=== PATIENT | male | born 1990 | race Caucasian/White ===

== ENCOUNTER 2018-06-03 12:48 | Inpatient (IN) | payer OTHER, SELFPAY ==
[2018-06-03 12:49] VITALS: BP 163/97; PULSE 90; RESP 16; TEMP 36.9; O2SAT 98; BMI 23.6
[2018-06-03 12:52] VITALS: BP 163/97; PULSE 90; RESP 16; TEMP 36.9; O2SAT 98
--- NOTE | 2018-06-03 13:07 | CT_ITS ---
STUDY: CT FACIAL BONES WITH CONTRAST REASON FOR EXAM: Male, 27 years old. Possible abscess overlying the left mandibular region. Elevated white count. RADIATION DOSAGE (If Supplied By Facility): CTDIvol = ( 29.38 ) mGy, DLP = ( 576.84 ) mGycm TECHNIQUE: The patient was scanned in a multi detector CT scanner. Transaxial imaging was performed following the intravenous administration of 50 ml of Isovue 370 contrast material. Sagittal and coronal images were reconstructed. Individualized dose optimization techniques were used for this CT. COMPARISON: None. FINDINGS: There is evidence of a 3.4 cm x 1.5 cm x 3.5 cm inhomogeneous soft tissue density with a central area of decreased attenuation overlying the left anterior mandible. This is suggestive of a phlegmon with early formation of an abscess. There is evidence of overlying skin thickening. There is also evidence of a 1.7 cm x 0.9 cm inhomogeneous soft tissue density arising from the anterior aspect of the face overlying the right zygoma. This may represent an early abscess formation as well. Normal orbital dubois and orbital contents. Normal nasal bones and anterior nasal spine. Normal facial bones. There is no demonstrated fracture. Mucosal thickening of the ethmoid sinuses. CT/Sinus/Facial Bone WITH Contras IMPRESSION: Findings suggestive of phlegmon and abscess formation overlying the anterior aspect of the left mandible as well as the right cheek overlying the right zygoma. Electronically Signed: Jose Elias Avila MD at 14:14 EST , Service support ,
[2018-06-03] MEDS: Mag Hydrox/Al Hydrox/Simeth 30 ML UDC PO (13:26)
[2018-06-03] MEDS: 0.9% Normal Saline 1,000 ML 150 ML IV (13:27)
[2018-06-03 13:31] LABS: Absolute Lymphocyte Count 1.14 X10^3/ul (0.83-4.51); Absolute Neutrophil Count 13.8 X10^3/uL (2.0-7.7); Basophil# 0.01 X10^3/uL; Basophil% 0.1 % (0-1); Eosinophil# 0.06 X10^3/uL; Eosinophils% 0.4 % (0-5); Hematocrit 44.3 % (40-54); Hemoglobin 14.8 g/dl (13.0-16.5); Lymphocyte # 1.14 X10^3/ul (4.0); Lymphocyte % 7.2 % (19-41); Mean Corp Hgb Conc 33.4 g/gl (32-36); Mean Corpuscular Hgb 30.3 pg (27.0-32.0); Mean Corpuscular Volume 90.6 fL (80-94); Mean Platelet Vol. 9.5 fl (6.2-12.0); Monocyte% 5.7 % (0-10); Neutrophil # 13.78 X10^3/uL (2.7-7.7); Neutrophil % 86.4 % (47-70); POSITIVE COUNT NO; POSITIVE DIFFERENTIAL NO; POSITIVE MORPHOLOGY NO; Platelet Count 312 K/mm3 (150-450); RBC Distribution Width CV 11.9 % (11.6-14.6); RBC Distribution Width SD 39.4 fl (35.1-43.9); Red Blood Count 4.89 M/mm3 (4.6-6.2); White Blood Count 15.9 K/mm3 (4.4-11.0)
[2018-06-03 13:41] LABS: Anion Gap 9 (5-15); BUN 6 mg/dL (7-18); BUN/Creat Ratio 6.2 RATIO (10-20); Calcium,Total 9.1 mg/dL (8.5-10.1); Chloride 103 mmol/L (98-107); Creatinine, Serum 0.97 mg/dL (0.70-1.30); EST Glomerular Filtration Rate 97 mL/min (>60); Est Glom Filt Rate - Afr Amer 117 mL/min (>60); Estimated Creatinine Clearance 116.02 ml/min; Glucose 101 mg/dL (74-106); Potassium 4.3 mmol/L (3.5-5.1); Sodium Level 141 mmol/L (136-145)
[2018-06-03] MEDS: Morphine 4 MG/ML Syringe IV (14:03)
[2018-06-03] MEDS: Ondansetron 4 MG/2 ML Vial IV (14:03)
[2018-06-03 14:06] VITALS: RESP 16; TEMP 37.3
--- NOTE | 2018-06-03 14:21 | ED.VISSUMM ---
- ER Visit Summary Date of Service: 06/03/18 Chief Complaint: [Facial redness and swelling] History of Present Illness: The patient is a 27 M [presents to the emergency department 3-day history of facial redness and swelling. Patient states that he developed what he thought was a pimple on the left side of his chin/mandible that he popped and had large amount of purulent debris expressed. Subsequently developed increased redness and swelling. Patient also developed redness and swelling to the right upper face and edema to the lower eyelid. Patient describes a subjective fever at home but did not take his temperature. Patient's had some chills. Patient was seen in urgent care and sent to the emergency department for further evaluation.] Physical Examination: [HEENT-PERRLA, EOMI. Cranial nerves II through XII grossly intact. TMs clear. Mucous membranes moist. No adenopathy. Patient has some redness and induration to the right cheek with tenderness on palpation. Patient has some faint edema of the right lower lid. Left lip and chin has an area of soft tissue swelling again that is cellulitic very tender to palpation with edema of the lower lip no discrete fluctuance noted. Cardiovascular-regular rate and rhythm without murmur or ectopy Lungs-clear to auscultation, chest wall stable without crepitus or subcu emphysema Abdomen-normoactive bowel sounds, soft, nontender, no rebound or rigidity, no peritoneal signs. Extremities-intact ?4, normal range of motion, normal pulses, atraumatic] Test Results: [CBC with differential obtained showed a white count of 15.9, hemoglobin 15, hematocrit 44, platelets 312. Chemistries unremarkable. CT scan of the facial bones with IV contrast was ordered which showed phlegmon and early abscess formations to the left mandible area as well as the right upper face.] Emergency Department Course and Treatment: [Patient was started on clindamycin 900 mg IV and was given morphine and Zofran for pain. Patient also complained of some stomach upset from taking ibuprofen and was given a GI cocktail.] Treatment Plan: [Admit for IV antibiotics and possible ENT eval] Disposition: [Admit] Impression: [Facial cellulitis with early abscess formation This note was generated with [employer] dictation software. It may contain incorrect words, spelling, and punctuation that were not noted in review of the chart prior to signing ED Disposition - Plan for ED Patient: Chief Complaint: Abscess Referrals: Jeff Bello MD [Primary Care Provider] -
--- NOTE | 2018-06-03 14:25 | ED.DCSUM_ITS ---
- ER Visit Summary Date of Service: 06/03/18 Chief Complaint: [Facial redness and swelling] History of Present Illness: The patient is a 27 M [presents to the emergency department 3-day history of facial redness and swelling. Patient states that he developed what he thought was a pimple on the left side of his chin/mandible that he popped and had large amount of purulent debris expressed. Subsequently developed increased redness and swelling. Patient also developed redness and swelling to the right upper face and edema to the lower eyelid. Patient describes a subjective fever at home but did not take his temperature. Patient's had some chills. Patient was seen in urgent care and sent to the em ergency department for further evaluation.] Physical Examination: [HEENT-PERRLA, EOMI. Cranial nerves II through XII grossly intact. TMs clear. Mucous membranes moist. No adenopathy. Patient has some redness and induration to the right cheek with tenderness on palpation. Patient has some faint edema of the right lower lid. Left lip and chin has an area of soft tissue swelling again that is cellulitic very tender to palpation with edema of the lower lip no discrete fluctuance noted. Cardiovascular-regular rate and rhythm without murmur or ectopy Lungs-clear to auscultation, chest wall stable without crepitus or subcu emphysema Abdomen-normoactive bowel sounds, soft, nontender, no rebound or rigidity, no peritoneal signs. Extremities-intact ?4, normal range of motion, normal pulses, atraumatic] Test Results: [CBC with differential obtained showed a white count of 15.9, hemoglobin 15, hematocrit 44, platelets 312. Chemistries unremarkable. CT scan of the facial bones with IV contrast was ordered which showed phlegmon and early abscess formations to the left mandible area as well as the right upper face.] Emergency Department Course and Treatment: [Patient was started on clindamycin 900 mg IV and was given morphine and Zofran for pain. Patient also complained of some stomach upset from taking ibuprofen and was given a GI cocktail.] Treatment Plan: [Admit for IV antibiotics and possible ENT eval] Disposition: [Admit] Impression: [Facial cellulitis with early abscess formation This note was generated with [employer] dictation software. It may contain incorrect words, spelling, and punctuation that were not noted in review of the chart prior to signing ED Disposition - Plan for ED Patient: Chief Complaint: Abscess Referrals: Jeff Bello MD [Primary Care Provider] -
--- NOTE | 2018-06-03 14:32 | NURSING ---
MED SURG FACIAL CELLULITIS, AND ABSCESS TERELETSKY
[2018-06-03 14:42] VITALS: BP 119/77; PULSE 74; RESP 16; O2SAT 99
--- NOTE | 2018-06-03 15:00 | PCM.HP.STD ---
Problem List (1) Cellulitis and abscess of face Status: Acute (2) Hx of testicular cancer Status: Chronic (3) ADHD Status: Chronic History of Present Illness Date of Admission: 06/03/18 Chief Complaint: facial swelling The patient is a 27 year old M with past medical history of testicular cancer in remission status post surgery and chemo therapy, also with a history of ADHD, who presented to the emergency room with complaints of pain and swelling of his face for the past 3 days. It began when he popped a pimple on the left side of his chin. Initially there was a significant amount of purulent discharge. He has had increased induration, swelling, pain in the left side of the face and then later the right upper side of the cheek. He has no fevers or chills. He denies a hx of MRSA. He has had cellulitis of the hand before. He has seen ENT in the past in [place] for ulcers in the throat, however he does not have an ENT here in [place]. Xray of the face shows phlegmon/absess. He received clinda in the ER. [] Past Medical History Past Medical History (Chronic Problems): Chronic Problems Hx of testicular cancer (Chronic) ADHD (Chronic) Allergies No Known Allergies Allergy (Verified 06/03/18 12:50) Home Medications: Ambulatory Orders Medication Instructions Recorded Lisdexamfetamine Dimesylate 60 mg PO DAILY 06/03/18 [Vyvanse] Surgical History: - - orchiectomy Psychiatric History: Attn. deficit disorder Lives: Alone Smoking Status: Never smoker Tobacco Use: Non-smoker Alcohol: Occasional Drugs: None - *Family History Maternal History Items: No pertinent history Paternal History Items: No pertinent history Review of Systems Constitutional: Denies: Chills, Fever, Weight Change HEENT: Reports: - - facial swelling, induration, warmth, pain, discharge. Denies: Head Aches, Sinus Congestion, Sinus Drainage Cardiovascular: Denies: Chest Pain, Palpitations Respiratory: Denies: Cough, Shortness of breath at rest, Sputum production Gastrointestinal: Denies: Abdominal Pain, Nausea, Vomiting Genitourinary: Denies: Dysuria Musculoskeletal: Denies: Joint Pain, Joint Tenderness Skin: Denies: Rash, Wounds Neurological: Denies: Numbness, Tingling, Focal weakness Psychiatric: Denies: Anxiety, Depression, Homicidal Ideations, Suicidal Ideations Hematologic/ Lymphatic: Denies: Easy Bruising, Easy Bleeding VTE Information - Inpt Only VTE Present on Admission: No VTE Mechan Device Prophylaxis: None VTE Pharm Prophylaxis ordered?: No Reason prophylaxis not ordered:: Procedure Not Indicated Patient Problems: Active and Suspected Problems Cellulitis and abscess of face (Acute) - Physical Exam General: Alert, Oriented x3, Cooperative HEENT: Atraumatic, PERRLA, EOMI, Normocephalic, - - right upp cheek swollen red, left cheek with healing wound, no expressible discharge, there is tenderness, warmth, erythema, and induration. Neck: Supple, No JVD, Negative Carotid Bruits Lungs: Clear to auscultation, Normal air movement Cardiovascular: Regular rate, No murmurs Abdomen: Bowel Sounds Present, Soft, Non Tender Extremities: No edema, Capillary Refill Less than 3 Seconds Skin: No rashes, No breakdown Musculoskeletal: No Tenderness to Palpation of Joints or Extremities Neurological: Cranial nerves II-XII grossly intact Psych/Mental Status: Normal Affect, Appropriate, Alert and oriented to time, place, person, mood and affect Vital Signs Temp Pulse Resp BP Pulse Ox 99.2 F H 74 16 119/77 99 06/03/18 14:06 06/03/18 14:42 06/03/18 14:42 06/03/18 14:42 06/03/18 14:42 Oxygen Delivery Method Room Air Weight: 164 lb 3.91 oz Body Mass Index (BMI) 23.6 Laboratory Tests Past 24 Hrs 06/03/18 06/03/18 13:15 13:15 WBC 15.9 H RBC 4.89 Hgb 14.8 Hct 44.3 MCV 90.6 MCH 30.3 MCHC 33.4 RDW 11.9 RDW Differential 39.4 Plt Count 312 MPV 9.5 Immature Gran % (Auto) 0.200 Neut % (Auto) 86.4 H Lymph % (Auto) 7.2 L [place] % (Auto) 5.7 Eos % (Auto) 0.4 Baso % (Auto) 0.1 Absolute Neuts (auto) 13.8 H Absolute Lymphs (auto) 1.14 Total Counted Not Reportable Sodium 141 Potassium 4.3 Chloride 103 Carbon Dioxide 29.0 Anion Gap 9 BUN 6 L Creatinine 0.97 Estim Creat Clear Calc 116.02 Est GFR (MDRD) Af Amer 117 Est GFR (MDRD) Non-Af 97 BUN/Creatinine Ratio 6.2 L Glucose 101 Calcium 9.1 Assessment/Plan All Active Problems Cellulitis and abscess of face (Acute) 1. Cellulitis and abscess of the face - xray with underlying abscess/phlegmon. ENT consult. Clinda given in the ER. Provide IV ancef. Repeat CBC, significant leukocytosis. Afebrile. This began after popping a zit. Wound culture if able to express more discharge. If not, nasal mrsa swab. 2. Hx testicular cancer in remission s/p orchiectomy and chemo 3. ADHD - continue vyvanse DVT ppx: Early ambulation This patient was seen by Lexx Harry PA-C under the supervision of Doctor Gonzalez.
[2018-06-03 15:11] VITALS: BMI 22.9; BMI 23.0
[2018-06-03 15:20] VITALS: BP 127/77; PULSE 51; RESP 16; TEMP 36.9; O2SAT 96
[2018-06-03] MEDS: oxyCODONE 5 MG Tablet PO ×2 (16:07→20:12)
--- NOTE | 2018-06-03 18:05 | PCM.CONS.GEN ---
Problem List (1) Cellulitis and abscess of face Status: Acute Reason for Consult Date of Consultation: 06/03/18 Reason for Consultation: cellultitis of face History of Present Illness: The patient is a 27 year old M who presents the emergency department after developing tender and red swelling over the right zygoma and left lateral oral commissure and cheek. He reports that he had a pimple in these locations that he had tried to express some material at which time they worsened and became more tender and red. He reports that the pain has increased since his presentation as each examination with pressure over the site has worsened the pain. He denies any dysphagia or, odynophagia, or shortness of breath. He denies shortness wheezing or stridor. He denies prior history of facial abscess but did have a abscess on his finger a few years back that responded promptly to antibiotic therapy. He denies any exposure to persons with antibiotic resistant infections or history of immunosuppression or other compromise. He denies trauma to the area other than the pimple and has otherwise been in his usual state of health. [] Past Medical History Past Medical History (Chronic Problems): Chronic Problems Hx of testicular cancer (Chronic) ADHD (Chronic) Allergies No Known Allergies Allergy (Verified 06/03/18 12:50) Home Medications: Ambulatory Orders Medication Instructions Recorded Lisdexamfetamine Dimesylate 60 mg PO DAILY 06/03/18 [Vyvanse] Surgical History: - - orchiectomy Psychiatric History: Attn. deficit disorder Lives: Alone Smoking Status: Never smoker Tobacco Use: Chew Alcohol: Occasional Drugs: None - *Family History Maternal History Items: No pertinent history Paternal History Items: No pertinent history Review of Systems Constitutional: Denies: Anorexia, Chills, Fever, Malaise, Weakness Eyes: Denies: Blurred vision, Double vision, Drainage, Pain HEENT: Denies: Difficulty Hearing, Difficulty Swallowing, Hearing Changes, Nasal Congestion, Sinus Drainage, Sore Throat Cardiovascular: Denies: Chest Pain, Chest Pressure, Chest Tightness Respiratory: Denies: Cough, Hemoptysis, Shortness of Breath Gastrointestinal: Denies: Abdominal Pain, Constipation Skin: Reports: Lesions, - - painful swelling over face and cheek bilateral sites Psychiatric: Denies: Anxiety, Depression Hematologic/ Lymphatic: Denies: Easy Bruising, Easy Bleeding Patient Problems: Active and Suspected Problems Cellulitis and abscess of face (Acute) Subjective: Patient reports he is having pain at his facial infection sites has been worsened due to manipulation by his examiners. He reports this is been only moderately improved by the pain medication he was offered. Objective: Well-appearing male in no acute distress eating his dinner at the bedside. There is noted to be swelling and induration with erythema overlying the left cheek extending to the oral commissure as well as the right zygoma. There is fresh blood clot over each of the sites consistent with his reported traumatic attempts at expressing deeper material. There is no maria a drainage or fluctuance and no pointing of the sites. - Physical Exam General: Alert, Oriented x3, Cooperative, No apparent distress HEENT: Atraumatic, PERRLA, EOMI, Normocephalic Oral: Moist Mucosa, No Gingival or Mucosal Lesions/ Ulcerations Neck: Supple Lungs: Normal air movement, No rhonchi, No wheeze Skin: - - Erythematous and indurated area with overlying eschar of right zygoma and left cheek extending to the oral commissure Psych/Mental Status: Alert and oriented to time, place, person, mood and affect Vital Signs Temp Pulse Resp BP Pulse Ox 98.5 F 51 L 16 127/77 H 96 06/03/18 15:20 06/03/18 15:20 06/03/18 15:20 06/03/18 15:20 06/03/18 15:20 Oxygen Delivery Method Room Air Weight: 72.575 kg Body Mass Index (BMI) 22.9 Laboratory Tests Past 24 Hrs 06/03/18 06/03/18 13:15 13:15 WBC 15.9 H RBC 4.89 Hgb 14.8 Hct 44.3 MCV 90.6 MCH 30.3 MCHC 33.4 RDW 11.9 RDW Differential 39.4 Plt Count 312 MPV 9.5 Immature Gran % (Auto) 0.200 Neut % (Auto) 86.4 H Lymph % (Auto) 7.2 L [place] % (Auto) 5.7 Eos % (Auto) 0.4 Baso % (Auto) 0.1 Absolute Neuts (auto) 13.8 H Absolute Lymphs (auto) 1.14 Total Counted Not Reportable Sodium 141 Potassium 4.3 Chloride 103 Carbon Dioxide 29.0 Anion Gap 9 BUN 6 L Creatinine 0.97 Estim Creat Clear Calc 116.02 Est GFR (MDRD) Af Amer 117 Est GFR (MDRD) Non-Af 97 BUN/Creatinine Ratio 6.2 L Glucose 101 Calcium 9.1 Assessment/Plan All Active Problems Cellulitis and abscess of face (Acute) Patient is a 27-year-old male who plans for evaluation of cellulitis and induration after trauma after attempted expression of facial pimples. His CT scan is reviewed which is more consistent with a phlegmon than an abscess at this point. I discussed with him that with intravenous antibiotic therapy these lesions may show recovery and not require surgical intervention however should they progress to fluid-filled spaces incision and drainage would be beneficial. He reports that there is significantly tender with manipulation and I have offered given their location the operative treatment would be an option but that my plan would be for observation over the next 48 hours for improvement for which she is in agreement. He is agreeable to notify me through the nursing staff should there be any significant progression or intolerance of oral intake, shortness of breath, hoarseness, or other significant change for the worse.
[2018-06-03] MEDS: Pantoprazole Sodium 40 MG Tablet PO (18:35)
[2018-06-03] MEDS: Acetaminophen 325 MG Tablet 650 MG PO (20:12)
[2018-06-03 20:15] VITALS: BP 132/72; PULSE 57; RESP 16; TEMP 37.4; O2SAT 100
[2018-06-03] MEDS: Morphine 2 MG/ML Syringe IV (21:27)
[2018-06-03] MEDS: 0.9% Normal Saline 1,000 ML 100 ML IV (23:21)
[2018-06-04 00:25] VITALS: BP 130/71; PULSE 75; RESP 16; TEMP 37.2; O2SAT 96
[2018-06-04] MEDS: oxyCODONE 5 MG Tablet PO ×4 (00:27→21:28)
[2018-06-04 05:57] VITALS: BP 114/50; PULSE 55; RESP 16; TEMP 37.2; O2SAT 98
[2018-06-04 06:17] LABS: Absolute Lymphocyte Count 1.57 X10^3/ul (0.83-4.51); Absolute Neutrophil Count 11.4 X10^3/uL (2.0-7.7); Basophil# 0.01 X10^3/uL; Basophil% 0.1 % (0-1); Eosinophil# 0.21 X10^3/uL; Eosinophils% 1.5 % (0-5); Hematocrit 36.6 % (40-54); Hemoglobin 12.2 g/dl (13.0-16.5); Lymphocyte # 1.57 X10^3/ul (4.0); Lymphocyte % 11.1 % (19-41); Mean Corp Hgb Conc 33.3 g/gl (32-36); Mean Corpuscular Hgb 30.3 pg (27.0-32.0); Mean Corpuscular Volume 90.8 fL (80-94); Mean Platelet Vol. 9.4 fl (6.2-12.0); Monocyte# 0.91 X10^3/uL; Monocyte% 6.5 % (0-10); Neutrophil # 11.37 X10^3/uL (2.7-7.7); Neutrophil % 80.6 % (47-70); Platelet Count 269 K/mm3 (150-450); RBC Distribution Width CV 11.5 % (11.6-14.6); RBC Distribution Width SD 37.4 fl (35.1-43.9); Red Blood Count 4.03 M/mm3 (4.6-6.2); White Blood Count 14.1 K/mm3 (4.4-11.0)
[2018-06-04 06:20] LABS: POSITIVE COUNT NO; POSITIVE DIFFERENTIAL NO; POSITIVE MORPHOLOGY NO
--- NOTE | 2018-06-04 06:56 | PN_ITS ---
Patient Problems: Active and Suspected Problems Cellulitis and abscess of face (Acute) Subjective: Overnight with notable discharge secondary to ongoing pressing and touching his wounds as he was noted to aggressively attempt to express both regions per night staff with ongoing purulent discharge despite our encouragement to avoid doing this. Patient notes that the left lateral cheek seems improved following notable purulent discharge being expressed; however, his right upper cheek erythema and edema has worsened and extended up into his lower and upper eyelids as well. 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 Patient denies fevers, chills, nausea, emesis, abdominal pain, chest pain or dyspnea. Objective: Physical Examination: General: awake, alert, oriented x 3 and cooperative, upon initial evaluation patient had ice on his face seated upright in bed, uncomfortable appearing. Skin: Erythema of the left cheek extending to the oral commissure although improved from prior per patient report with still notable tenderness to palpation and ongoing purulent discharge in addition to right zygomatic arch erythema, edema, induration with mild purulent discharge from wounds with worsened erythema and edema into the lower and upper eyelid at this time, patient unable to open his lid. HEENT: AT/NC noted skin findings with swelling, induration, overlying erythema of the left cheek extending to the oral commissure although improved from prior per patient report with still notable tenderness to palpation and ongoing purulent discharge in addition to right zygomatic arch erythema, edema, induration with mild purulent discharge from wounds with worsened erythema and edema into the lower and upper eyelid at this time, patient unable to open his lid, EOM L eye intact, unable to open R eyelid as noted, PERRLA with assist to open R eye lids, mildly dry MM. Lungs: CTA bilaterally, moderate effort, mild decrease BL bases, no rales, ronchi or wheezing. Heart: Regular rate and rhythm; no gallop, rub audible. Abdomen: soft, NTTP, ND, normal BS. Extremities: no cyanosis, clubbing, or edema. Neurological: patient awake, alert, oriented x 3; cognitive function intact; pupils equally reactive to light and accomodation with limitations as noted above; cranial nerves II-XII grossly normal; however, difficult assessment secondary to edema as noted, moving all 4 extremities, no focal deficits, strength mildly globally decreased. Psychiatric: affect appears normal, no acute evidence of depressive or anxiety feelings. Vitals/I&O's: Vital Signs Temp Pulse Resp BP Pulse Ox 99.0 F 55 L 16 114/50 L 98 06/04/18 05:57 06/04/18 05:57 06/04/18 05:57 06/04/18 05:57 06/04/18 05:57 Oxygen Delivery Method Room Air Weight: 160 lb Body Mass Index (BMI) 22.9 Intake and Output for Last 24 Hours 06/02/18 06/03/18 06/04/18 23:59 23:59 23:59 Intake Total 2009 1302 / 1302 Output Total 275 / 275 800 / 800 Balance 1735 / 1735 502 / 502 Laboratory Results 06/03/18 13:15: WBC 15.9 H, RBC 4.89, Hgb 14.8, Hct 44.3, MCV 90.6, MCH 30.3, MCHC 33.4, RDW 11.9, RDW Differential 39.4, Plt Count 312, MPV 9.5, Immature Gran % (Auto) 0.200, Neut % (Auto) 86.4 H, Lymph % (Auto) 7.2 L, [place] % (Auto) 5.7, Eos % (Auto) 0.4, Baso % (Auto) 0.1, Absolute Neuts (auto) 13.8 H, Absolute Lymphs (auto) 1.14, Total Counted Not Reportable 06/03/18 13:15: Sodium 141, Potassium 4.3, Chloride 103, Carbon Dioxide 29.0, Anion Gap 9, BUN 6 L, Creatinine 0.97, Estim Creat Clear Calc 116.02, Est GFR (MDRD) Af Amer 117, Est GFR (MDRD) Non-Af 97, BUN/Creatinine Ratio 6.2 L, Glucose 101, Calcium 9.1 06/04/18 06:02: WBC 14.1 H, RBC 4.03 L, Hgb 12.2 L, Hct 36.6 L, MCV 90.8, MCH 30.3, MCHC 33.3, RDW 11.5 L, RDW Differential 37.4, Plt Count 269, MPV 9.4, Immature Gran % (Auto) 0.200, Neut % (Auto) 80.6 H, Lymph % (Auto) 11.1 L, [place] % (Auto) 6.5, Eos % (Auto) 1.5, Baso % (Auto) 0.1, Absolute Neuts (auto) 11.4 H, Absolute Lymphs (auto) 1.57, Total Counted Not Reportable Current Medications Acetaminophen (Tylenol) 650 mg PO Q6H PRN PRN PRN Reason: Mild Pain (1-3)/Temp > 100.7 F Last Admin: 06/03/18 20:12 Dose: 650 mg Sodium Chloride () 1,000 mls @ 100 mls/hr IV .Q10H [place] Last Admin: 06/03/18 23:21 Dose: 100 mls/hr Ampicillin Sodium/Sulbactam (Sodium 3 gm/ Sodium Chloride) 112 mls @ 150 mls/hr IV Q6 [place] Last Admin: 06/04/18 05:59 Dose: 150 mls/hr Oxycodone HCl (Oxyir) 10 - 15 mg PO Q4H PRN PRN PRN Reason: MOD-SEVERE PAIN (4-10/10) Last Admin: 06/04/18 06:00 Dose: 15 mg Pantoprazole Sodium (Protonix) 40 mg PO DAILY [facility] Sodium Chloride () 5 - 15 ml IV UD PRN PRN Reason: SALINE FLUSH Medical Necessity - Tobacco Use Smoking Status: Never smoker Tobacco Use: Chew Assessment/Plan All Active Problems Cellulitis and abscess of face (Acute) The patient is a 27 y/o M w/ PMHx: ADHD, History of Testicular Cancer in remission s/p chemotherapy and orchiectomy, 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 (1) Facial (Left lateral mouth/cheek), Right Upper Cheek Abscess, Cellulitis: ED work-up with facial/sinus imaging w/ just of a phlegmon and abscess formation overlying the anterior aspect of the left mandible as well as the right cheek overlying the right zygoma admission CBC w/ WBC 15.9 with L shift. Admitted to [place], maintained on IV Unasyn, given health care worker will add Vanc pending requested Wound Cx and Wound MRSA PCR, plan repeat CBC in AM, continue HOB elevation, monitor erythema outline with VS checks. Strongly encouraged patient to discontinue pressing and touching his wounds as he was noted to aggressively attempt to express both regions per night staff with ongoing purulent discharge. PRN IV, oral pain regimen, scheduled short course toradol IV. ENT consulted and following, planned continued abx therapy x 48 hours with re-assessment for surgical needs. (2) ADHD: Continue home Vyvanse regimen. (3) History of Testicular CA: Patient in remission s/p chemotherapy and orchiectomy. (4) Chew Tobacco: Encouraged cessation, inpatient consultation per RT, NR if desired. (5) GERD: PPI. (6) DVT Prophylaxis: Ambulation, low risk. Code Visit Inpatient E&M: 07125 Subs Hosp L3
[2018-06-04 08:22] LABS: Magnesium 1.8 mg/dL (1.6-2.6)
--- NOTE | 2018-06-04 08:22 | PCM.RX.CS ---
Consult Pharmacy has been consulted to manage selected antiobiotic: Vancomycin Type of Consult: New start Suspected Infection: Skin/Soft tissue Labs: Sodium 141 mmol/L (136-145) 06/03/18 13:15 Potassium 4.3 mmol/L (3.5-5.1) 06/03/18 13:15 Chloride 103 mmol/L (98-107) 06/03/18 13:15 Carbon Dioxide 29.0 mmol/L (21.0-32.0) 06/03/18 13:15 Anion Gap 9 (5-15) 06/03/18 13:15 BUN 6 mg/dL (7-18) L 06/03/18 13:15 Creatinine 0.97 mg/dL (0.70-1.30) 06/03/18 13:15 Est GFR (MDRD) Af Amer 117 mL/min (>60) 06/03/18 13:15 Est GFR (MDRD) Non-Af 97 mL/min (>60) 06/03/18 13:15 BUN/Creatinine Ratio 6.2 RATIO (10-20) L 06/03/18 13:15 Glucose 101 mg/dL (74-106) 06/03/18 13:15 Weight used for dosin kg Estimated Creatinine Clearance: > 100 Goal Trough: 10-15 mcg/mL Pharmacy Plan for Drug Dosing: Discussed dosing of vancomycin with Dr Beverly. Will not follow protocol initially, will start vancomycin 1000mg IV q8h with trough check prior to 5th dose. Will revert back to dosing protocol at that time. Pharmacy Service will continue to monitor and adjust dosing as required. Follow-Up Labs: Trough Vancomycin - 06/05/18 @ 1530
[2018-06-04] MEDS: Ketorolac 30 MG/ML Syringe IV ×3 (09:11→21:21)
[2018-06-04] MEDS: Pantoprazole Sodium 40 MG Tablet PO (09:11)
[2018-06-04] MEDS: Vancomycin IV 1,000 MG/200 ML BAG 200 MG IV ×3 (09:12→23:28)
[2018-06-04] MEDS: Acetaminophen 325 MG Tablet 650 MG PO (09:12)
[2018-06-04] MEDS: 0.9% Normal Saline 1,000 ML 100 ML IV ×2 (09:32→21:21)
[2018-06-04 09:34] VITALS: BP 119/66; PULSE 67; RESP 16; TEMP 38.1; O2SAT 99
[2018-06-04] MEDS: Morphine 2 MG/ML Syringe IV ×3 (09:51→19:49)
[2018-06-04] MEDS: 0.9% NaCl Peripheral Flush Adult/Peds IV (09:56)
--- NOTE | 2018-06-04 11:51 | NURSING ---
wound photo: under right eye
--- NOTE | 2018-06-04 11:54 | NURSING ---
wound photo: left side of mouth, chin area
--- NOTE | 2018-06-04 12:15 | CASEMGMT ---
RN CM Assessment Presentation: Left facial swelling from having popped a pimple. Significant amount of purulent drainage. Cultures sent, IV Vancomyin and IV Unasyn. CT showed fluid collection in LL lip and chin area and R cheek area, possible abscess collections. Intro role of CM and purpose of RN CM assessment. Pt is anxious to recover and return to work as he states he has no PTO time. Nurse updated that pt would like work excuse when dc'd. His next work day is Friday evening. RN CM offered emotional support and discussed need for cultures to come back and IV antibiotic therapy as prescribed by physicians due to extent of redness and swelling on face. Pt does understand but is verbalizing frustration. PCP: Dr. Bello Specialists: Dr. Welch consulted Preferred [facility]acy: [facility], entered in chart. Insurance: [employer] Prescription Benefit: yes LNOK: Parents/ Camron and Denise Elser Living Arrangements: Lives independently, works, denies DME or oxygen use. Transportation: Drives DC PLAN: Home on discharge. Pt plans to return to work as soon as possible. If dc plan requires more involvement than home with po antibiotics, RN CM will assist with further dc planning. Og HERNANDEZN RN ACM
--- NOTE | 2018-06-04 12:45 | PCM.PROGNOTE ---
Patient Problems: Active and Suspected Problems Cellulitis and abscess of face (Acute) Subjective: The patient reports that he had a large amount of drainage over the left cheek site last night which is resulted in significant reduction in pain and swelling. He did have some progression on the right which is now extended to the lower eyelid and although this morning he had trouble opening the eye this has improved as the day is going on. He reports overall he feels that things are improving and his pain is significantly decreased. Objective: Patient is sitting comfortably in bed. There is decreased induration and fullness over the left oral commissure and cheek. Palpation reveals this to be softening with less induration and no maria a purulence expressed. Over the right zygoma there is a small amount of purulent drainage expressed on palpation in the area of erythema extends to involve the lower eyelid however he is able to open the eye at this time. He reports that this is much less painful to palpation as it had been yesterday. - Physical Exam General: Alert, Oriented x3, Cooperative, No apparent distress HEENT: Atraumatic, PERRLA, EOMI, - - Bilateral areas of cellulitis. This is reduced on the left. There is some moderate extension to involve the lower eyelid on the right. There has been noted to be spontaneous drainage of both sites overnight. Oral: Moist Mucosa, No Gingival or Mucosal Lesions/ Ulcerations Neck: Supple Lungs: Normal air movement, No rhonchi, No wheeze Skin: Ulcer/ Wound - of face as noted Neurological: Neuro grossly intact Psych/Mental Status: Alert and oriented to time, place, person, mood and affect Vital Signs Temp Pulse Resp BP Pulse Ox 100.5 F H 67 16 119/66 99 06/04/18 09:34 06/04/18 09:34 06/04/18 09:34 06/04/18 09:34 06/04/18 09:34 Oxygen Delivery Method Room Air Weight: 72.6 kg Body Mass Index (BMI) 22.9 Intake and Output for Last 24 Hours 06/02/18 06/03/18 06/04/18 23:59 23:59 23:59 Intake Total 2009 1302 / 1302 Output Total 275 / 275 800 / 800 Balance 1735 / 1735 502 / 502 Laboratory Tests Past 24 Hrs 06/03/18 06/03/18 06/04/18 13:15 13:15 06:02 WBC 15.9 H 14.1 H RBC 4.89 4.03 L Hgb 14.8 12.2 L Hct 44.3 36.6 L MCV 90.6 90.8 MCH 30.3 30.3 MCHC 33.4 33.3 RDW 11.9 11.5 L RDW Differential 39.4 37.4 Plt Count 312 269 MPV 9.5 9.4 Immature Gran % (Auto) 0.200 0.200 Neut % (Auto) 86.4 H 80.6 H Lymph % (Auto) 7.2 L 11.1 L [place] % (Auto) 5.7 6.5 Eos % (Auto) 0.4 1.5 Baso % (Auto) 0.1 0.1 Absolute Neuts (auto) 13.8 H 11.4 H Absolute Lymphs (auto) 1.14 1.57 Total Counted Not Reportable Not Reportable Sodium 141 Potassium 4.3 Chloride 103 Carbon Dioxide 29.0 Anion Gap 9 BUN 6 L Creatinine 0.97 Estim Creat Clear Calc 116.02 Est GFR (MDRD) Af Amer 117 Est GFR (MDRD) Non-Af 97 BUN/Creatinine Ratio 6.2 L Glucose 101 Calcium 9.1 Magnesium S.aureus Protein A PCR MRSA (PCR) 06/04/18 06/04/18 06:02 09:30 WBC RBC Hgb Hct MCV MCH MCHC RDW RDW Differential Plt Count MPV Immature Gran % (Auto) Neut % (Auto) Lymph % (Auto) [place] % (Auto) Eos % (Auto) Baso % (Auto) Absolute Neuts (auto) Absolute Lymphs (auto) Total Counted Sodium Potassium Chloride Carbon Dioxide Anion Gap BUN Creatinine Estim Creat Clear Calc Est GFR (MDRD) Af Amer Est GFR (MDRD) Non-Af BUN/Creatinine Ratio Glucose Calcium Magnesium 1.8 S.aureus Protein A PCR Pending MRSA (PCR) Pending Medical Necessity - Tobacco Use Smoking Status: Never smoker Tobacco Use: Chew Assessment/Plan All Active Problems Cellulitis and abscess of face (Acute) The patient has done well overnight despite some extension of the redness and swelling of the overlying eyelid his areas of cellulitis appear to be improved. There is been spontaneous drainage of both sites overnight. I would recommend topical application of warm compresses to facilitate ongoing drainage. As there has been spontaneous drainage, I do not feel that surgical incision and drainage would be warranted at this time however and anticipate his good response to intravenous antibiotic therapy that should cultures not show significant antibiotic resistance that transition to oral therapy and follow-up as an outpatient would be appropriate.
[2018-06-04 15:08] VITALS: BP 112/65; PULSE 59; RESP 16; TEMP 36.6; O2SAT 100
[2018-06-04 15:12] LABS: M R Staph aureus DNA By PCR POSITIVE (Negative); Probe Check PASS; Staph aureus DNA By PCR POSITIVE (Negative)
[2018-06-04 15:19] LABS: M R Staph aureus DNA By PCR POSITIVE (Negative); Probe Check PASS; Staph aureus DNA By PCR POSITIVE (Negative)
[2018-06-04 19:55] VITALS: BP 132/79; PULSE 56; RESP 16; TEMP 36.9; O2SAT 100
[2018-06-05 00:46] VITALS: BP 132/82; PULSE 52; RESP 16; TEMP 36.4; O2SAT 100
[2018-06-05] MEDS: oxyCODONE 5 MG Tablet PO ×4 (01:24→22:57)
[2018-06-05] MEDS: Ketorolac 30 MG/ML Syringe IV ×3 (06:08→22:18)
[2018-06-05 06:33] LABS: Absolute Lymphocyte Count 1.67 X10^3/ul (0.83-4.51); Absolute Neutrophil Count 4.6 X10^3/uL (2.0-7.7); Basophil# 0.02 X10^3/uL; Basophil% 0.3 % (0-1); Eosinophils% 4.2 % (0-5); Hematocrit 35.2 % (40-54); Lymphocyte # 1.67 X10^3/ul (4.0); Lymphocyte % 23.5 % (19-41); Mean Corp Hgb Conc 34.1 g/gl (32-36); Mean Corpuscular Hgb 30.8 pg (27.0-32.0); Mean Corpuscular Volume 90.3 fL (80-94); Mean Platelet Vol. 9.8 fl (6.2-12.0); Monocyte# 0.45 X10^3/uL; Monocyte% 6.3 % (0-10); Neutrophil # 4.64 X10^3/uL (2.7-7.7); Neutrophil % 65.4 % (47-70); Platelet Count 268 K/mm3 (150-450); RBC Distribution Width CV 11.4 % (11.6-14.6); RBC Distribution Width SD 36.6 fl (35.1-43.9); White Blood Count 7.1 K/mm3 (4.4-11.0)
[2018-06-05 06:35] LABS: POSITIVE COUNT NO; POSITIVE DIFFERENTIAL NO; POSITIVE MORPHOLOGY NO
[2018-06-05 06:38] VITALS: BP 117/62; PULSE 51; RESP 16; TEMP 36.4; O2SAT 99
--- NOTE | 2018-06-05 06:44 | PN_ITS ---
Patient Problems: Active and Suspected Problems Cellulitis and abscess of face (Acute) Subjective: Patient with no acute events overnight per self and per nursing report. Pain control improved, erythema and cellulitis of the right zygomatic region as well as left lateral cheek near the oral commissure markedly improved, still having drainage from the left cheek region and still mildly indurated. Patient with notable improvement his labs and remains now afebrile. Patient is able to bend his eyelid he notes. Patient denies fevers, chills, nausea, emesis, abdominal pain, chest pain or dyspnea. Objective: Physical Examination: General: awake, alert, oriented x 3 and cooperative, NAD, more comfortable appearing, although with palpation does tense jaw and neck. Skin: Erythema of the left cheek decreased, only noted around draining region/wounds, extending to the oral commissure, still TTP, still mildly indurated, expected TTP, notably improved right zygomatic arch erythema, edema, induration, currently no drainage from wounds with worsened erythema, notably reduced edema into the lower and upper eyelid with patient able to easily open his eye now. HEENT: AT/NC noted skin findings above, EOMI, PERRLA, now open to easily open R eye, improved MMM, cervical/postauricular LAD present. Lungs: CTA bilaterally, moderate effort, mild decrease BL bases, no rales, ronchi or wheezing. Heart: Regular rate and rhythm; no gallop, rub audible. Abdomen: soft, NTTP, ND, normal BS. Extremities: no cyanosis, clubbing, or edema. Neurological: patient awake, alert, oriented x 3; cognitive function intact; pupils equally reactive to light and accomodation with limitations as noted above; cranial nerves II-XII grossly normal; however, difficult assessment secondary to edema as noted, moving all 4 extremities, no focal deficits, strength improved, moving w/ greater ease, less uncomfortable, mildly globally decreased. Psychiatric: affect appears normal, no acute evidence of depressive or anxiety feelings. Vitals/I&O's: Vital Signs Temp Pulse Resp BP Pulse Ox 97.6 F L 51 L 16 117/62 99 06/05/18 06:38 06/05/18 06:38 06/05/18 06:38 06/05/18 06:38 06/05/18 06:38 Oxygen Delivery Method Room Air Weight: 160 lb 0.889 oz Body Mass Index (BMI) 22.9 Intake and Output for Last 24 Hours 06/03/18 06/04/18 06/05/18 23:59 23:59 23:59 Intake Total 2009 4497 / 4497 1009 / 1009 Output Total 275 / 275 2925 / 2925 1000 / 1000 Balance 1735 / 1735 1572 / 1572 9 / 9 Microbiology Past 72 Hours 06/04/18 09:30 Wound - Face Gram Stain - Final 06/04/18 09:30 Wound - Face Gram Stain - Final Laboratory Results 06/04/18 06:02: Magnesium 1.8 06/04/18 09:30: S.aureus Protein A PCR POSITIVE H, MRSA (PCR) POSITIVE H 06/04/18 09:30: S.aureus Protein A PCR POSITIVE H, MRSA (PCR) POSITIVE H 06/05/18 06:00: WBC 7.1, RBC 3.90 L, Hgb 12.0 L, Hct 35.2 L, MCV 90.3, MCH 30.8, MCHC 34.1, RDW 11.4 L, RDW Differential 36.6, Plt Count 268, MPV 9.8, Immature Gran % (Auto) 0.300, Neut % (Auto) 65.4, Lymph % (Auto) 23.5, [place] % (Auto) 6.3, Eos % (Auto) 4.2, Baso % (Auto) 0.3, Absolute Neuts (auto) 4.6, Absolute Lymphs (auto) 1.67, Total Counted Not Reportable 06/05/18 06:00: Sodium Pending, Potassium Pending, Chloride Pending, Carbon Dioxide Pending, Anion Gap Pending, BUN Pending, Creatinine Pending, Est GFR (MDRD) Af Amer Pending, Est GFR (MDRD) Non-Af Pending, BUN/Creatinine Ratio Pending, Glucose Pending, Calcium Pending Current Medications Acetaminophen (Tylenol) 650 mg PO Q6H PRN PRN PRN Reason: Mild Pain (1-3)/Temp > 100.7 F Last Admin: 06/04/18 09:12 Dose: 650 mg Sodium Chloride () 1,000 mls @ 100 mls/hr IV .Q10H [facility] Last Admin: 06/04/18 21:21 Dose: 100 mls/hr Ampicillin Sodium/Sulbactam (Sodium 3 gm/ Sodium Chloride) 112 mls @ 150 mls/hr IV Q6 [facility] Last Admin: 06/05/18 06:08 Dose: 150 mls/hr Vancomycin IV Pharmacy to Dose (1 ea/ Sodium Chloride) 500 mls @ 250 mls/hr IV X1 PRN; Protocol PRN Reason: Rx to Dose Vancomycin HCl (Vancomycin) 1,000 mg in 200 mls @ 200 mls/hr IV Q8H [facility] Last Admin: 06/04/18 23:28 Dose: 200 mls/hr Ketorolac Tromethamine (Toradol) 30 mg IV Q8 [facility] Stop: 06/05/18 22:01 Last Admin: 06/05/18 06:08 Dose: 30 mg Morphine Sulfate () 2 - 4 mg IV Q4H PRN PRN PRN Reason: PAIN Last Admin: 06/04/18 19:49 Dose: 4 mg Oxycodone HCl (Oxyir) 5 - 10 mg PO Q4H PRN PRN PRN Reason: MOD-SEVERE PAIN (4-10/10) Last Admin: 06/05/18 01:24 Dose: 10 mg Pantoprazole Sodium (Protonix) 40 mg PO DAILY [facility] Last Admin: 06/04/18 09:11 Dose: 40 mg Sodium Chloride () 5 - 15 ml IV UD PRN PRN Reason: SALINE FLUSH Last Admin: 06/04/18 09:56 Dose: 10 ml Medical Necessity - Tobacco Use Smoking Status: Never smoker Tobacco Use: Chew Assessment/Plan All Active Problems Cellulitis and abscess of face (Acute) The patient is a 27 y/o M w/ PMHx: ADHD, History of 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 (1) Acute Sepsis secondary to Facial (Left lateral mouth/cheek), Right Upper Cheek MRSA Abscess, Cellulitis: ED work-up with facial/sinus imaging w/ just of a phlegmon and abscess formation overlying the anterior aspect of the left mandible as well as the right cheek overlying the right zygoma admission CBC w/ WBC 15.9 with L shift. Admitted to [facility], maintained on IV Unasyn initially, given health care worker added Vanc w/ pending Wound Cx, + MRSA Wound PCR, 06/05/18 CBC w/ improvement, WBC 7.1 with resolved shift from day prior, continue HOB elevation, continue ENT recommended compresses, continue to monitor erythema outline with VS checks. Continued encouragement to avoid pressing and touching his wounds. PRN IV, oral pain regimen, scheduled short course toradol IV. ENT consulted and following. (2) ADHD: Continue home Vyvanse regimen. (3) History of Testicular CA: Patient in remission s/p chemotherapy and orchiectomy. (4) Chew Tobacco: Encouraged cessation, inpatient consultation per RT, NR if desired. (5) GERD: PPI. (6) DVT Prophylaxis: Ambulation, low risk. Code Visit Inpatient E&M: 79242 Subs Hosp L2
[2018-06-05 06:46] LABS: Anion Gap 7 (5-15); BUN 5 mg/dL (7-18); BUN/Creat Ratio 7.1 RATIO (10-20); Chloride 106 mmol/L (98-107); Creatinine, Serum 0.71 mg/dL (0.70-1.30); EST Glomerular Filtration Rate 139 mL/min (>60); Est Glom Filt Rate - Afr Amer 169 mL/min (>60); Estimated Creatinine Clearance 157.64 ml/min; Glucose 77 mg/dL (74-106); Potassium 3.8 mmol/L (3.5-5.1); Sodium Level 140 mmol/L (136-145)
[2018-06-05 09:00] VITALS: BP 151/84; PULSE 61; RESP 16; TEMP 36.3; O2SAT 100
[2018-06-05] MEDS: 0.9% Normal Saline 1,000 ML 100 ML IV (09:10)
[2018-06-05] MEDS: Vancomycin IV 1,000 MG/200 ML BAG 200 MG IV ×2 (09:10→17:10)
[2018-06-05] MEDS: Morphine 2 MG/ML Syringe IV ×2 (09:15→20:51)
[2018-06-05] MEDS: 0.9% NaCl Peripheral Flush Adult/Peds IV ×3 (09:22→18:31)
[2018-06-05] MEDS: Acetaminophen 325 MG Tablet 650 MG PO ×2 (10:45→20:50)
[2018-06-05] MEDS: Pantoprazole Sodium 40 MG Tablet PO (10:45)
[2018-06-05 14:55] VITALS: BP 125/76; PULSE 52; RESP 16; TEMP 36.4; O2SAT 99
[2018-06-05 16:53] LABS: Vancomycin, Trough Level 11.2 ug/mL (5.0-15.0)
--- NOTE | 2018-06-05 19:26 | PCM.RX.CS ---
Consult Pharmacy has been consulted to manage selected antiobiotic: Vancomycin Type of Consult: Follow-up Suspected Infection: Skin/Soft tissue Prior Doses of Antibiotics Received/Current Regimen: Medications Vancomycin HCl (Vancomycin) 1,000 mg in 200 mls @ 200 mls/hr IV Q8H [facility] Last Admin: 06/05/18 17:10 Dose: 200 mls/hr Labs: Sodium 140 mmol/L (136-145) 06/05/18 06:00 Potassium 3.8 mmol/L (3.5-5.1) 06/05/18 06:00 Chloride 106 mmol/L (98-107) 06/05/18 06:00 Carbon Dioxide 27.0 mmol/L (21.0-32.0) 06/05/18 06:00 Anion Gap 7 (5-15) 06/05/18 06:00 BUN 5 mg/dL (7-18) L 06/05/18 06:00 Creatinine 0.71 mg/dL (0.70-1.30) 06/05/18 06:00 Est GFR (MDRD) Af Amer 169 mL/min (>60) 06/05/18 06:00 Est GFR (MDRD) Non-Af 139 mL/min (>60) 06/05/18 06:00 BUN/Creatinine Ratio 7.1 RATIO (10-20) L 06/05/18 06:00 Glucose 77 mg/dL (74-106) 06/05/18 06:00 Vancomycin Trough 11.2 ug/mL (5.0-15.0) 06/05/18 15:51 Microbiology: Microbiology 06/04/18 09:30 Wound - Face Gram Stain - Final 06/04/18 09:30 Wound - Face Wound Culture - Preliminary Staphylococcus aureus 06/04/18 09:30 Wound - Face Gram Stain - Final 06/04/18 09:30 Wound - Face Wound Culture - Preliminary Staphylococcus aureus Weight used for dosin kg Estimated Creatinine Clearance: 157 ml/min Goal Trough: 10-15 mcg/mL Pharmacy Plan for Drug Dosing: Vancomycin trough level of 11.2 returned in target range. Pharmacy Service will continue to monitor and adjust dosing as required. Trough level will be evaluated in 4 days unless CrCl changes.
[2018-06-05 20:55] VITALS: BP 126/84; PULSE 55; RESP 16; TEMP 36.8; O2SAT 99
[2018-06-06] MEDS: 0.9% Normal Saline 1,000 ML 100 ML IV (00:07)
[2018-06-06] MEDS: Vancomycin IV 1,000 MG/200 ML BAG 200 MG IV ×2 (00:59→07:58)
[2018-06-06] MEDS: Morphine 2 MG/ML Syringe IV (01:04)
[2018-06-06 03:00] VITALS: BP 122/78; PULSE 60; RESP 16; TEMP 36.9; O2SAT 98
[2018-06-06 06:52] LABS: Absolute Lymphocyte Count 1.92 X10^3/ul (0.83-4.51); Absolute Neutrophil Count 2.9 X10^3/uL (2.0-7.7); Basophil# 0.02 X10^3/uL; Basophil% 0.3 % (0-1); Eosinophil# 0.39 X10^3/uL; Eosinophils% 6.8 % (0-5); Hematocrit 35.6 % (40-54); Hemoglobin 11.8 g/dl (13.0-16.5); Lymphocyte # 1.92 X10^3/ul (4.0); Lymphocyte % 33.5 % (19-41); Mean Corp Hgb Conc 33.1 g/gl (32-36); Mean Corpuscular Hgb 29.6 pg (27.0-32.0); Mean Corpuscular Volume 89.4 fL (80-94); Monocyte# 0.46 X10^3/uL; Neutrophil # 2.93 X10^3/uL (2.7-7.7); Neutrophil % 51.2 % (47-70); Platelet Count 266 K/mm3 (150-450); RBC Distribution Width CV 11.5 % (11.6-14.6); RBC Distribution Width SD 37.6 fl (35.1-43.9); Red Blood Count 3.98 M/mm3 (4.6-6.2); White Blood Count 5.7 K/mm3 (4.4-11.0)
[2018-06-06 06:57] LABS: POSITIVE COUNT NO; POSITIVE DIFFERENTIAL NO; POSITIVE MORPHOLOGY NO
--- NOTE | 2018-06-06 07:03 | PCM.PN.HOSP ---
Patient Problems: Active and Suspected Problems Cellulitis and abscess of face (Acute) Vitals/I&O's: Vital Signs Temp Pulse Resp BP Pulse Ox 98.4 F 60 16 122/78 H 98 06/06/18 03:00 06/06/18 03:00 06/06/18 03:00 06/06/18 03:00 06/06/18 03:00 Oxygen Delivery Method Room Air Weight: 160 lb 0.889 oz Body Mass Index (BMI) 22.9 Intake and Output for Last 24 Hours 06/04/18 06/05/18 06/06/18 23:59 23:59 23:59 Intake Total 4497 / 4497 3601 / 3601 1295 / 1295 Output Total 2925 / 2925 2300 / 2300 1300 / 1300 Balance 1572 / 1572 1301 / 1301 -5 / -5 Microbiology Past 72 Hours 06/04/18 09:30 Wound - Face Gram Stain - Final 06/04/18 09:30 Wound - Face Wound Culture - Preliminary Staphylococcus aureus 06/04/18 09:30 Wound - Face Gram Stain - Final 06/04/18 09:30 Wound - Face Wound Culture - Preliminary Staphylococcus aureus Laboratory Results 06/05/18 15:51: Vancomycin Trough 11.2 06/06/18 06:37: WBC 5.7, RBC 3.98 L, Hgb 11.8 L, Hct 35.6 L, MCV 89.4, MCH 29.6, MCHC 33.1, RDW 11.5 L, RDW Differential 37.6, Plt Count 266, MPV 9.0, Immature Gran % (Auto) 0.200, Neut % (Auto) 51.2, Lymph % (Auto) 33.5, [place] % (Auto) 8.0, Eos % (Auto) 6.8 H, Baso % (Auto) 0.3, Absolute Neuts (auto) 2.9, Absolute Lymphs (auto) 1.92, Total Counted Not Reportable 06/06/18 06:37: Sodium Pending, Potassium Pending, Chloride Pending, Carbon Dioxide Pending, Anion Gap Pending, BUN Pending, Creatinine Pending, Est GFR (MDRD) Af Amer Pending, Est GFR (MDRD) Non-Af Pending, BUN/Creatinine Ratio Pending, Glucose Pending, Calcium Pending Current Medications Acetaminophen (Tylenol) 650 mg PO Q6H PRN PRN PRN Reason: Mild Pain (1-3)/Temp > 100.7 F Last Admin: 06/05/18 20:50 Dose: 650 mg Sodium Chloride () 1,000 mls @ 100 mls/hr IV .Q10H [facility] Last Admin: 06/06/18 00:07 Dose: 100 mls/hr Ampicillin Sodium/Sulbactam (Sodium 3 gm/ Sodium Chloride) 112 mls @ 150 mls/hr IV Q6 [facility] Last Admin: 06/06/18 06:20 Dose: 150 mls/hr Vancomycin IV Pharmacy to Dose (1 ea/ Sodium Chloride) 500 mls @ 250 mls/hr IV X1 PRN; Protocol PRN Reason: Rx to Dose Vancomycin HCl (Vancomycin) 1,000 mg in 200 mls @ 200 mls/hr IV Q8H [facility] Last Admin: 06/06/18 00:59 Dose: 200 mls/hr Morphine Sulfate () 2 - 4 mg IV Q4H PRN PRN PRN Reason: PAIN Last Admin: 06/06/18 01:04 Dose: 4 mg Oxycodone HCl (Oxyir) 5 - 10 mg PO Q4H PRN PRN PRN Reason: MOD-SEVERE PAIN (4-10/10) Last Admin: 06/05/18 22:57 Dose: 10 mg Pantoprazole Sodium (Protonix) 40 mg PO DAILY [facility] Last Admin: 06/05/18 10:45 Dose: 40 mg Sodium Chloride () 5 - 15 ml IV UD PRN PRN Reason: SALINE FLUSH Last Admin: 06/05/18 18:31 Dose: 10 ml Medical Necessity - Tobacco Use Smoking Status: Never smoker Tobacco Use: Chew Assessment/Plan All Active Problems Cellulitis and abscess of face (Acute)
[2018-06-06 07:31] LABS: Anion Gap 9 (5-15); BUN 4 mg/dL (7-18); BUN/Creat Ratio 5.4 RATIO (10-20); Calcium,Total 8.3 mg/dL (8.5-10.1); Chloride 107 mmol/L (98-107); Creatinine, Serum 0.74 mg/dL (0.70-1.30); EST Glomerular Filtration Rate 132 mL/min (>60); Est Glom Filt Rate - Afr Amer 160 mL/min (>60); Estimated Creatinine Clearance 151.25 ml/min; Glucose 80 mg/dL (74-106); Sodium Level 144 mmol/L (136-145)
--- NOTE | 2018-06-06 08:43 | DCINST_ITS ---
- Discharge Diagnoses Current Active Problems: Current Active and Chronic Problems (1) Acute Sepsis secondary to Facial (Left lateral mouth/cheek), Right Upper Cheek MRSA Abscess, Cellulitis (2) ADHD (3) History of Testicular CA in remission (4) Chew Tobacco (5) GERD You will use the following diet at home:: No restrictions Your food should be the consistency of: Regular Your liquids should be the consistency of: Regular/Thin Discharge Activity: May not drive while taking narcotic pain medications. Call your doctor if your incision/area has: Continuous Slow Oozing, Sudden Increased Bleeding, Increased Pain/ Swelling, Increased Redness, Foul Smelling Discharge Call your doctor if you observe: Fever of 101 or Higher, Inability to urinate, Inability to have a bowel movement, Shortness of breath, Dizziness, Fainting spells, Chest pain, Uncontrolled pain, - - Recurrent facial swelling, redness, increased purulent drainage from sores. Instructions: Recognizing and Treating Wound Infection, Abscess Drainage, ED Skin Infec MRSA Suspect Conf, Methicillin-Resistant Staphylococcus aureus (MRSA) Infection Additional Instructions: You have also been given a nasal and body towel cleanser in order to assist with MRSA decolonization. Please initiate this regimen as well. Allergies/Adverse Reactions: Allergies No Known Allergies Allergy (Verified 06/03/18 12:50) Medications to take at Discharge Lisdexamfetamine Dimesylate [Vyvanse] 60 mg PO DAILY 06/03/18 Chlorhexidine Gluc 2% Cloth [(None)] 1 each TOPICAL DAILY 5 Days #5 towelette 06/06/18 Mupirocin [Bactroban] 1 applic NASAL BID 5 Days #1 tube 06/06/18 Oxycodone [Oxyir] 5 - 10 mg PO Q4H PRN PRN 2 Days #24 tablet 06/06/18 Smz/Tmp Ds [Bactrim Ds] 1 tablet PO BID 8 Days #16 tablet 06/06/18 The following prescriptions were given: Oxycodone [Oxyir] 5 - 10 mg PO Q4H PRN PRN 2 Days #24 tablet PRN Reason: Mod-Severe Pain (4-10/10) Chlorhexidine Gluc 2% Cloth [(None)] 1 each TOPICAL DAILY 5 Days #5 towelette Mupirocin [Bactroban] 1 applic NASAL BID 5 Days #1 tube Smz/Tmp Ds [Bactrim Ds] 1 tablet PO BID 8 Days #16 tablet Primary Care Physician: Jeff Bello MD [Primary Care Provider] - Please follow up with your Primary Care Physician in: Follow-up within 3-5 days to review admission. Test Results: Test results from this visit will be discussed in further detail at your follow- up appointment, if applicable. Please Follow Up With: Daniel Welch MD When: Follow-up within 1 week. Proposed Discharge Date: 06/06/18
--- NOTE | 2018-06-06 08:43 | PCM.DC.SUM ---
Discharge Date and Diagnosis Date of Admission: 06/03/18 Date of Discharge: 06/06/18 - Primary Discharge Diagnosis Active and Suspected Problems (1) Acute Sepsis secondary to Facial (Left lateral mouth/cheek), Right Upper Cheek MRSA Abscess, Cellulitis (2) ADHD (3) History of Testicular CA in remission (4) Chew Tobacco (5) GERD - Secondary Discharge Diagnosis Chronic Problems Hx of testicular cancer (Chronic) ADHD (Chronic) Hospital Course and Treatment Consultations 06/04/18 08:10 Consult: Onc/Wound/home aide Routine Comment: Dr. 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 ED work-up with facial/sinus imaging w/ just of a phlegmon and abscess formation overlying the anterior aspect of the left mandible as well as the right cheek overlying the right zygoma admission CBC w/ WBC 15.9 with L shift. Admitted to [place], maintained on IV Unasyn initially, given health care worker added Vanc w/ eventual Wound Cx, + MRSA Wound PCR + and finalization Wound Cx 06/06/18 MRSA with notable various sensitivities. Patient erythema, edema, induration improved dramatically. Discussed progress with ENT and patient appropriate for discharge to home on 06/06/18 on continued regimen bactrim, small amount pain regimen in addition to decolonization regimen with recommended PCP as well as ENT follow-up assessment. Encouraged follow-up with Dermatology which he has arranged to assist with acne. Strongly encouraged cessation, inpatient consultation per RT, NR offered. DAY OF DISCHARGE PROGRESS NOTE: Subjective: Patient without acute event overnight per self and nursing report. Edema, erythema, drainage nearly resolved. Patient denies fever, chills, nausea, emesis, abdominal pain, chest pain or dyspnea. Patient agreeable to discharge to home on continued abx therapy. Patient will be discharged with follow-up with primary care physician within 3-5 days in addition to ENT re-assessment and continued plan to see Dermatology. Strongly discussed avoidance of picking again. Objective: T 98.1, heart rate 55, BP 132/78, respiratory rate 18, 98% on room air. Physical Examination: General: awake, alert, oriented x 3 and cooperative, NAD. Skin: Erythema of the left cheek decreased, nearly resolved, minimal drainage to region/wounds, less edematous, NTTP today, mild induration still, notably improved right zygomatic arch erythema, edema to region including eyelids nearly resolved, induration resolved, no drainage to wounds. HEENT: AT/NC noted skin findings above, EOMI, PERRLA, no further eyelid edema, resolved, decreased TTP/cervical/postauricular LAD present. Lungs: CTA bilaterally, moderate effort, mild decrease BL bases, no rales, ronchi or wheezing. Heart: Regular rate and rhythm; no gallop, rub audible. Abdomen: soft, NTTP, ND, normal BS. Extremities: no cyanosis, clubbing, or edema. Neurological: patient awake, alert, oriented x 3; cognitive function intact; pupils equally reactive to light and accomodation with limitations as noted above; cranial nerves II-XII grossly normal; however, difficult assessment secondary to edema as noted, moving all 4 extremities, no focal deficits, strength improved, returning to baseline, preserved. Psychiatric: affect appears normal, no acute evidence of depressive or anxiety feelings. Assessment and Plan: Please see hospital summary above. - Physical Exam Vital Signs Temp Pulse Resp BP Pulse Ox 98.4 F 60 16 122/78 H 98 06/06/18 03:00 06/06/18 03:00 06/06/18 03:00 06/06/18 03:00 06/06/18 03:00 Oxygen Delivery Method Room Air Weight: 160 lb 0.889 oz Body Mass Index (BMI) 22.9 Intake and Output for Last 24 Hours 06/04/18 06/05/18 06/06/18 23:59 23:59 23:59 Intake Total 4497 / 4497 3601 / 3601 1295 / 1295 Output Total 2925 / 2925 2300 / 2300 1300 / 1300 Balance 1572 / 1572 1301 / 1301 -5 / -5 Microbiology Past 72 Hours 06/04/18 09:30 Gram Stain - Final Wound - Face Wound Culture - Final Meth. resistant Staph. aureus 06/04/18 09:30 Gram Stain - Final Wound - Face Wound Culture - Final Meth. resistant Staph. aureus Laboratory Tests Past 24 Hrs 06/05/18 06/06/18 06/06/18 15:51 06:37 06:37 WBC 5.7 RBC 3.98 L Hgb 11.8 L Hct 35.6 L MCV 89.4 MCH 29.6 MCHC 33.1 RDW 11.5 L RDW Differential 37.6 Plt Count 266 MPV 9.0 Immature Gran % (Auto) 0.200 Neut % (Auto) 51.2 Lymph % (Auto) 33.5 [place] % (Auto) 8.0 Eos % (Auto) 6.8 H Baso % (Auto) 0.3 Absolute Neuts (auto) 2.9 Absolute Lymphs (auto) 1.92 Total Counted Not Reportable Sodium 144 Potassium 4.0 Chloride 107 Carbon Dioxide 28.0 Anion Gap 9 BUN 4 L Creatinine 0.74 Estim Creat Clear Calc 151.25 Est GFR (MDRD) Af Amer 160 Est GFR (MDRD) Non-Af 132 BUN/Creatinine Ratio 5.4 L Glucose 80 Calcium 8.3 L Vancomycin Trough 11.2 Discharge Activity: May not drive while taking narcotic pain medications. Call your doctor if your incision/area has: Continuous Slow Oozing, Sudden Increased Bleeding, Increased Pain/ Swelling, Increased Redness, Foul Smelling Discharge Call your doctor if you observe: Fever of 101 or Higher, Inability to urinate, Inability to have a bowel movement, Shortness of breath, Dizziness, Fainting spells, Chest pain, Uncontrolled pain, - - Recurrent facial swelling, redness, increased purulent drainage from sores. Home Medications: Medications to take at Discharge Lisdexamfetamine Dimesylate [Vyvanse] 60 mg PO DAILY 06/03/18 Chlorhexidine Gluc 2% Cloth [(None)] 1 each TOPICAL DAILY 5 Days #5 towelette 06/06/18 Mupirocin [Bactroban] 1 applic NASAL BID 5 Days #1 tube 06/06/18 Oxycodone [Oxyir] 5 - 10 mg PO Q4H PRN PRN 2 Days #24 tablet 06/06/18 Smz/Tmp Ds [Bactrim Ds] 1 tablet PO BID 8 Days #16 tablet 06/06/18 Following Prescrptions Were Given to Patient: Oxycodone [Oxyir] 5 - 10 mg PO Q4H PRN PRN 2 Days #24 tablet PRN Reason: Mod-Severe Pain (4-10/10) Chlorhexidine Gluc 2% Cloth [(None)] 1 each TOPICAL DAILY 5 Days #5 towelette Mupirocin [Bactroban] 1 applic NASAL BID 5 Days #1 tube Smz/Tmp Ds [Bactrim Ds] 1 tablet PO BID 8 Days #16 tablet Primary Care Physician: Jeff Bello MD [Primary Care Provider] - Please follow up with your Primary Care Physician in: Follow-up within 3-5 days to review admission. Please Follow Up With: Daniel Welch MD When: Follow-up within 1 week. Patient Instructions: Recognizing and Treating Wound Infection, Abscess Drainage, Methicillin-Resistant Staphylococcus aureus (MRSA) Infection, ED Skin Infec MRSA Suspect Conf Disposition: Home Minutes spent on discharge:: 35 Patient Condition:: Fair Medical Necessity - Tobacco Use Smoking Status: Never smoker Tobacco Use: Chew Meaningful Use Info Meaningful Use Diagnoses (Choose all that apply): None applicable Code Visit Inpatient E&M: 11802 Disch Hosp
[2018-06-06 10:42] VITALS: BP 132/78; PULSE 55; RESP 18; TEMP 36.7; O2SAT 99
== END 2018-06-06 11:30 | disposition home or self-care (01) | DRG 872 ==
LOC: ED 13:34 → MS2 14:47
PROVIDERS: Admitting Provider Internal Medicine; Emergency Provider Emergency Medicine; Family Provider Family Medicine; PCP Family Medicine; Referring Provider Internal Medicine; Visit Provider Family Medicine
DX: A41.9 Sepsis, unspecified organism (principal); L02.01 Cutaneous abscess of face; L03.211 Cellulitis of face; B95.62 Methicillin resistant Staphylococcus aureus infection as the cause of diseases classified elsewhere; F90.9 Attention-deficit hyperactivity disorder, unspecified type; Z85.47 Personal history of malignant neoplasm of testis; Z90.79 Acquired absence of other genital organ(s); Z92.21 Personal history of antineoplastic chemotherapy; Z72.0 Tobacco use; K21.9 Gastro-esophageal reflux disease without esophagitis
CPT/HCPCS: 36415; 70487; 80048; 80202; 83735; 85025; 87070; 87077; 87186; 87205; 87640; 99282; J7030; Q9967; A4216; J0295; J2405